=== PATIENT | male | born 1960 | race Caucasian/White ===

== ENCOUNTER → 2021-01-08 | Day surgery (SDC) | payer MEDICARE, OTHER ==
[~2021-01-08] MED LIST: ASPIRIN EC81 MG PO; AZULFIDINE500 MG PO; FISH OIL 1,0001 EAC1 PO; FISH OIL 1,0001 EACH PO; MULTI-VITAMIN1 EACH PO; SULFASALAZINE500 MG PO; THERAGRAN M TAB1 EA PO
== END | disposition home or self-care (01) ==
LOC: OR 05:50
DX: K51.80 Other ulcerative colitis without complications (principal); K57.30 Diverticulosis of large intestine without perforation or abscess without bleeding; K64.8 Other hemorrhoids; I10 Essential (primary) hypertension; Z80.1 Family history of malignant neoplasm of trachea, bronchus and lung; E66.01 Morbid (severe) obesity due to excess calories; Z68.37 Body mass index [BMI] 37.0-37.9, adult
CPT/HCPCS: J2001; J2704; J7040

== ENCOUNTER → 2022-04-11 | Outpatient (CLI) | payer MEDICARE | LOC: EXRD 10:46 | DX: R05.3 Chronic cough (principal); J98.11 Atelectasis | CPT/HCPCS: 71046 ==

== ENCOUNTER → 2022-05-05 | Outpatient (CLI) | payer MEDICARE | LOC: EXRD 09:12 | DX: R05.3 Chronic cough (principal) | CPT/HCPCS: 71046 ==

== ENCOUNTER → 2022-05-20 | Outpatient (CLI) | payer MEDICARE | LOC: HEART 5 10:04 | DX: J45.40 Moderate persistent asthma, uncomplicated (principal); R06.02 Shortness of breath; R05.9 Cough, unspecified; R93.89 Abnormal findings on diagnostic imaging of other specified body structures | CPT/HCPCS: 94060; 94729; 95012 ==